=== PATIENT | female | born 1965 | race African-American/Black ===

== ENCOUNTER 2020-02-24 20:16 | Inpatient (IN) | payer MEDICAID ==
[~2020-02-24] VITALS: Ht 162.6 cm; Wt 119.8 kg
[2020-02-24] MEDS ORDERED: DiphenhydrAMINE HCL 50 MG/ML VIAL ONE (21:59)
[2020-02-24] MEDS ORDERED: LORazepam 2 MG/ML VIAL ONE (21:59)
[2020-02-24] MEDS ORDERED: HALOPERIDOL LACTATE 5 MG/ML VIAL ONE (21:59)
[2020-02-24] MEDS ORDERED: LORazepam 2 MG/ML VIAL IM ONE (22:00)
[2020-02-24] MEDS ORDERED: HALOPERIDOL LACTATE 5 MG/ML VIAL IM ONE (22:00)
[2020-02-24] MEDS ORDERED: DiphenhydrAMINE HCL 50 MG/ML VIAL IM ONE (22:00)
[2020-02-24] MEDS ORDERED: HALOPERIDOL 5 MG TABLET PO PRN (23:30)
[2020-02-25] MEDS ORDERED: MAG HYDROX/AL HYDROX/SIMETH ES 30 ML SUSPENSION UDCUP PO PRN (07:30)
[2020-02-25] MEDS ORDERED: DOCUSATE SODIUM 100 MG CAPSULE PO PRN (07:30)
[2020-02-25] MEDS ORDERED: NICOTINE 14 MG/24 HOUR PATCH TD PRN (07:30)
[2020-02-25] MEDS ORDERED: IBUPROFEN 400 MG TABLET PO PRN (07:30)
[2020-02-25] MEDS ORDERED: GuaiFENesin/D-METHORPHAN [SUGAR-FREE] 200-20MG/10 ML SYRUP UDCUP PO PRN (07:30)
[2020-02-25] MEDS ORDERED: PETROLATUM,WHITE 28 GM JELLY TP PRN (07:30)
[2020-02-25] MEDS ORDERED: ONDANSETRON HCL 4 MG TABLET PO PRN (07:30)
[2020-02-25] MEDS ORDERED: CloNIDine HCL 0.1 MG TABLET PO PRN (07:30)
[2020-02-25] MEDS ORDERED: ALBUTEROL SULFATE HFA 90 MCG/PUFF 8 GM INHALER IH PRN (07:30)
[2020-02-25] MEDS ORDERED: MAGNESIUM HYDROXIDE SUSPENSION 30 ML UDCUP PO PRN (07:30)
[2020-02-25] MEDS ORDERED: LOPERAMIDE HCL 2 MG CAPSULE PO PRN (07:30)
[2020-02-25 16:05] VITALS: BP 117/64
[2020-02-26 02:39] VITALS: BP 110/68
[2020-02-26] MEDS: LORazepam 2 MG TABLET PO PRN ×2 (08:00→20:26)
[2020-02-26 16:07] VITALS: BP 117/70
[2020-02-26] MEDS: RisperiDONE 1 MG TABLET PO SCH (21:00)
[2020-02-26] MEDS: ZOLPIDEM TARTRATE 10 MG TABLET PO PRN (22:40)
[2020-02-27 06:35] VITALS: BP 136/76
[2020-02-27 08:07] VITALS: BP 126/83
[2020-02-27] MEDS: LORazepam 2 MG TABLET PO PRN ×2 (08:15→13:00)
[2020-02-27] MEDS ORDERED: DiphenhydrAMINE HCL 50 MG/ML VIAL IM ONE ×2 (08:30→13:30)
[2020-02-27] MEDS ORDERED: LORazepam 2 MG/ML VIAL IM ONE (08:30)
[2020-02-27] MEDS ORDERED: ChlorproMAZINE HCL 50 MG/2 ML AMP IM ONE ×2 (08:30→13:30)
[2020-02-27] MEDS: RisperiDONE 1 MG TABLET PO SCH ×2 (09:00→21:00)
[2020-02-28] MEDS: LORazepam 2 MG TABLET PO PRN (08:19)
[2020-02-28] MEDS: RisperiDONE 1 MG TABLET PO SCH ×2 (08:22→20:06)
[2020-02-28] MEDS ORDERED: HALOPERIDOL LACTATE 5 MG/ML VIAL ONE (13:35)
[2020-02-28] MEDS ORDERED: DiphenhydrAMINE HCL 50 MG/ML VIAL ONE (13:35)
[2020-02-28] MEDS ORDERED: LORazepam 2 MG/ML VIAL ONE (13:35)
[2020-02-28] MEDS ORDERED: LORazepam 2 MG/ML VIAL IM ONE (13:45)
[2020-02-28] MEDS ORDERED: DiphenhydrAMINE HCL 50 MG/ML VIAL IM ONE (13:45)
[2020-02-28] MEDS ORDERED: HALOPERIDOL LACTATE 5 MG/ML VIAL IM ONE (13:45)
[2020-02-28 16:12] VITALS: BP 122/69
[2020-02-29 06:06] VITALS: BP 108/77
[2020-02-29 08:19] VITALS: BP 126/79
[2020-02-29] MEDS: LORazepam 2 MG TABLET PO PRN ×2 (08:35→14:52)
[2020-02-29] MEDS: RisperiDONE 1 MG TABLET PO SCH ×3 (08:39→21:00)
[2020-02-29 17:03] VITALS: BP 119/102
[2020-02-29] MEDS: ZOLPIDEM TARTRATE 10 MG TABLET PO PRN (21:30)
[2020-03-01] MEDS: LORazepam 2 MG TABLET PO PRN ×3 (00:24→17:21)
[2020-03-01 01:08] VITALS: BP 124/82
[2020-03-01] MEDS: ACETAMINOPHEN 325 MG TABLET PO PRN (08:18)
[2020-03-01] MEDS: RisperiDONE 1 MG TABLET PO SCH ×2 (08:20→20:17)
[2020-03-01 16:18] VITALS: BP 138/80
[2020-03-01] MEDS: ZOLPIDEM TARTRATE 10 MG TABLET PO PRN (20:15)
[2020-03-02 01:20] VITALS: BP 126/78
[2020-03-02] MEDS: LORazepam 2 MG TABLET PO PRN ×2 (08:06→16:23)
[2020-03-02] MEDS: RisperiDONE 1 MG TABLET PO SCH (08:06)
[2020-03-02] MEDS ORDERED: HALOPERIDOL LACTATE 5 MG/ML VIAL IM ONE (08:25)
[2020-03-02] MEDS ORDERED: LORazepam 2 MG/ML VIAL IM ONE (08:25)
[2020-03-02] MEDS ORDERED: DiphenhydrAMINE HCL 50 MG/ML VIAL IM ONE (08:25)
[2020-03-02 10:47] VITALS: BP 122/70
[2020-03-02] MEDS: TraMADol HCL 50 MG TABLET PO PRN (10:47)
[2020-03-02 16:10] VITALS: BP 142/88
[2020-03-02] MEDS: QUEtiapine FUMARATE 100 MG TABLET PO SCH (16:19)
[2020-03-02] MEDS: SIMETHICONE 80 MG CHEWABLE TABLET CHEW PRN (16:21)
[2020-03-03 01:13] VITALS: BP 126/78
[2020-03-03] MEDS: LORazepam 2 MG TABLET PO PRN ×2 (08:58→17:43)
[2020-03-03] MEDS: QUEtiapine FUMARATE 100 MG TABLET PO SCH ×2 (08:58→17:43)
[2020-03-03 09:35] VITALS: BP 124/80
[2020-03-03] MEDS: TraMADol HCL 50 MG TABLET PO PRN (09:35)
[2020-03-03 17:35] VITALS: BP 126/78
[2020-03-03] MEDS ORDERED: HALOPERIDOL LACTATE 5 MG/ML VIAL ONE (17:48)
[2020-03-03] MEDS ORDERED: LORazepam 2 MG/ML VIAL ONE (17:48)
[2020-03-03] MEDS ORDERED: DiphenhydrAMINE HCL 50 MG/ML VIAL ONE (17:48)
[2020-03-03] MEDS ORDERED: LORazepam 2 MG/ML VIAL IM ONE (18:00)
[2020-03-03] MEDS ORDERED: HALOPERIDOL LACTATE 5 MG/ML VIAL IM ONE (18:00)
[2020-03-03] MEDS ORDERED: DiphenhydrAMINE HCL 50 MG/ML VIAL IM ONE (18:00)
[2020-03-04 03:52] VITALS: BP 124/73
[2020-03-04] MEDS: LORazepam 2 MG TABLET PO PRN ×2 (08:12→14:47)
[2020-03-04] MEDS: QUEtiapine FUMARATE 100 MG TABLET PO SCH ×2 (08:12→16:59)
[2020-03-04] MEDS: TraMADol HCL 50 MG TABLET PO PRN (14:48)
[2020-03-05 01:50] VITALS: BP 114/72
[2020-03-05] MEDS: LORazepam 2 MG TABLET PO PRN ×3 (08:19→23:10)
[2020-03-05] MEDS: QUEtiapine FUMARATE 100 MG TABLET PO SCH ×2 (08:19→16:03)
[2020-03-05] MEDS: TraMADol HCL 50 MG TABLET PO PRN (10:32)
[2020-03-05] MEDS: SIMETHICONE 80 MG CHEWABLE TABLET CHEW PRN (15:23)
[2020-03-05 16:07] VITALS: BP 114/68
[2020-03-05] MEDS: ZOLPIDEM TARTRATE 10 MG TABLET PO PRN (23:10)
[2020-03-06 00:55] VITALS: BP 119/87
[2020-03-06 08:15] VITALS: BP 137/98
[2020-03-06] MEDS: QUEtiapine FUMARATE 100 MG TABLET PO SCH ×2 (09:00→16:39)
[2020-03-06] MEDS: TraMADol HCL 50 MG TABLET PO PRN ×2 (09:08→17:12)
[2020-03-06] MEDS ORDERED: ZOLPIDEM TARTRATE 10 MG TABLET PO PRN (09:15)
[2020-03-06 10:08] VITALS: BP 128/80
[2020-03-06] MEDS: LORazepam 2 MG TABLET PO PRN ×2 (11:32→16:32)
[2020-03-06 16:18] VITALS: BP 125/76
[2020-03-06 17:13] VITALS: BP 126/75
[2020-03-06] MEDS: ACETAMINOPHEN 325 MG TABLET PO PRN (20:29)
[2020-03-07 00:41] VITALS: BP 101/71
[2020-03-07] MEDS: LORazepam 2 MG TABLET PO PRN ×3 (07:36→17:13)
[2020-03-07] MEDS: QUEtiapine FUMARATE 100 MG TABLET PO SCH ×2 (08:06→16:00)
[2020-03-07 08:19] VITALS: BP 129/81
[2020-03-07] MEDS: TraMADol HCL 50 MG TABLET PO PRN (16:00)
[2020-03-07 16:23] VITALS: BP 124/79
[2020-03-08 01:06] VITALS: BP 117/74
[2020-03-08] MEDS: TraMADol HCL 50 MG TABLET PO PRN (05:11)
[2020-03-08] MEDS: LORazepam 2 MG TABLET PO PRN ×2 (06:13→16:35)
[2020-03-08 08:06] VITALS: BP 136/60
[2020-03-08] MEDS: QUEtiapine FUMARATE 100 MG TABLET PO SCH ×2 (08:45→16:35)
[2020-03-08] MEDS: SIMETHICONE 80 MG CHEWABLE TABLET CHEW PRN (08:48)
[2020-03-08 16:05] VITALS: BP 134/72
[2020-03-09 05:03] VITALS: BP 132/70
[2020-03-09 08:35] VITALS: BP 102/68
[2020-03-09] MEDS: TraMADol HCL 50 MG TABLET PO PRN (09:49)
[2020-03-09] MEDS: QUEtiapine FUMARATE 100 MG TABLET PO SCH (09:49)
[2020-03-09] MEDS: LORazepam 2 MG TABLET PO PRN (09:49)
== END 2020-03-09 10:45 | disposition home or self-care (01) | DRG 751 ==
LOC: EMS 20:19 → B3A 02-25 11:47
PROVIDERS: ADMIT Psychiatry & Neurology Child & Adolescent Psychiatry; ATTEND Psychiatry & Neurology Child & Adolescent Psychiatry
DX: F29 Unspecified psychosis not due to a substance or known physiological condition (principal); G93.40 Encephalopathy, unspecified; Z87.891 Personal history of nicotine dependence; Z03.818 Encounter for observation for suspected exposure to other biological agents ruled out
CPT/HCPCS: 87426; 99291; J1200; J1630; J2060; J3230

== ENCOUNTER 2025-04-16 15:05 | Inpatient (IN) | payer MEDICAID, OTHER ==
[~2025-04-16] VITALS: Ht 167.6 cm; Wt 132.0 kg
[2025-04-16] MEDS: IPRATROPIUM BROMIDE 0.5 MG/2.5 ML NEB SOLUTION NEB ONE (15:44)
[2025-04-16] MEDS: ALBUTEROL SULFATE 2.5 MG/0.5 ML NEB SOLUTION NEB ONE (15:45)
[2025-04-16 15:47] VITALS: PULSE 86; RESP 24; O2SAT 88
[2025-04-16 16:02] VITALS: PULSE 94; RESP 22; O2SAT 93
[2025-04-16 20:26] LABS: APPEARANCE,URINE HAZY (CLEAR); GLUCOSE, URINE (UA) NEGATIVE (NEGATIVE); LEUKOCYTE ESTERASE ,URINE TRACE (NEGATIVE); NITRATE,URINE POSITIVE (NEGATIVE); OCCULT BLOOD,URINE NEGATIVE (NEGATIVE); SPECIFIC GRAVITIY, URINE 1.016 (1.003-1.030)
[2025-04-16 20:45] VITALS: BP 139/83; PULSE 89; RESP 18; TEMP 97.9; O2SAT 90
[2025-04-16 20:45] LABS: SQUAMOUS EPITHELIAL CELL,UR Few /LPF (None Seen)
[2025-04-16] MEDS ORDERED: HYDROCODONE/ACETAMINOPHEN 5-325 MG TABLET PO PRN (21:15)
[2025-04-16] MEDS ORDERED: BISACODYL 10 MG RECTAL RECTAL SUPPOSITORY PR PRN (21:15)
[2025-04-16] MEDS ORDERED: MAGNESIUM HYDROXIDE SUSPENSION 30 ML UDCUP PO PRN (21:15)
[2025-04-16] MEDS ORDERED: MORPHINE SULFATE 4 MG/ML SYRINGE IVP PRN (21:15)
[2025-04-16] MEDS ORDERED: ONDANSETRON HCL 4 MG/2 ML VIAL IVP PRN (21:15)
[2025-04-16] MEDS: CefTRIAXone 1 GM/DEXTROSE 50 ML IV SCH (22:00)
[2025-04-16] MEDS: AZITHROMYCIN 500 MG/NS 250 ML IV SCH (22:00)
[2025-04-17] MEDS: HEPARIN SODIUM,PORCINE 5,000 UNITS/ML VIAL SQ SCH
[2025-04-17] MEDS ORDERED: SODIUM CHLORIDE 0.9% 500 ML IV ONE (00:01)
[2025-04-17] MEDS: ALBUTEROL SULFATE 2.5 MG/0.5 ML NEB SOLUTION NEB SCH (02:00)
[2025-04-17] MEDS: IPRATROPIUM BROMIDE 0.5 MG/2.5 ML NEB SOLUTION NEB SCH (02:00)
[2025-04-17 07:54] LABS: PLATELET COUNT (AUTO) 449 K/uL (150-450); RED BLOOD CELL COUNT(AUTO) 4.65 MIL/uL (4.00-5.20); RED CELL DISTRIBUTION WIDTH 18.2 % (11.5-14.5); WHITE BLOOD COUNT (AUTO) 6.9 K/uL (4.5-11.0)
[2025-04-17 07:59] LABS: CALCIUM, TOTAL 8.2 mg/dL (8.8-10.5); CREATININE 0.64 mg/dL (0.60-1.30); GLOMERULAR FILTR. RATE CALC > 60 mL/min (>60); GLUCOSE,RANDOM 163 mg/dL (70-110); SODIUM SERUM 135 mmol/L (136-145); UREA NITROGEN, BLOOD 9 mg/dL (7-18)
[2025-04-17 08:08] LABS: TROPONIN I-HIGH SENSITIVITY 13 ng/L (<51)
[2025-04-17 08:21] VITALS: BP 142/92; PULSE 91; RESP 18; TEMP 98.1; O2SAT 91
[2025-04-17] MEDS: BENZONATATE 100 MG CAPSULE PO SCH (10:22)
[2025-04-17] MEDS: GuaiFENesin SR 600 MG ER TABLET PO SCH (10:22)
[2025-04-17] MEDS: DOCUSATE SODIUM 100 MG CAPSULE PO SCH (10:22)
[2025-04-17] MEDS: PANTOPRAZOLE SODIUM 40 MG DR TABLET PO SCH (10:22)
[2025-04-17] MEDS: ACETAMINOPHEN 325 MG TABLET PO PRN (10:28)
[2025-04-17] MEDS: CEPHALEXIN MONOHYDRATE 500 MG CAPSULE PO SCH (15:19)
[2025-04-17] MEDS: LORazepam 2 MG/ML VIAL IM ONE (17:32)
[2025-04-18] VITALS (7 sets, daily range): BP systolic 122; BP diastolic 57; PULSE 90–101; RESP 18–22; TEMP 98.1; O2SAT 86–95
[2025-04-18] MEDS: ALBUTEROL SULFATE 2.5 MG/0.5 ML NEB SOLUTION NEB PRN (04:22)
[2025-04-18] MEDS: IPRATROPIUM BROMIDE 0.5 MG/2.5 ML NEB SOLUTION NEB PRN (04:23)
[2025-04-18] MEDS ORDERED: AZITHROMYCIN 500 MG TABLET PO SCH (09:00)
[2025-04-19 09:12] VITALS: PULSE 86; RESP 18; O2SAT 94
[2025-04-19 09:47] VITALS: BP 115/51; RESP 17; TEMP 98.1; O2SAT 90
[2025-04-19 13:45] VITALS: PULSE 95; RESP 20; O2SAT 96
[2025-04-19 20:40] VITALS: PULSE 84; RESP 20; O2SAT 90
[2025-04-19 20:52] VITALS: BP 141/64; PULSE 88; RESP 18; TEMP 98.1; O2SAT 100
[2025-04-19 20:55] VITALS: PULSE 88; RESP 20; O2SAT 96
[2025-04-19] MEDS ORDERED: BUPR1TAB46 SL (23:30)
[2025-04-20] VITALS (10 sets, daily range): BP systolic 115–139; BP diastolic 60–73; PULSE 65–96; RESP 17–20; TEMP 97.3–98; O2SAT 83–99
[2025-04-20] MEDS: LORazepam 2 MG/ML VIAL IM ONE (02:46)
[2025-04-20 06:19] LABS: PLATELET COUNT (AUTO) 397 K/uL (150-450); RED BLOOD CELL COUNT(AUTO) 4.24 MIL/uL (4.00-5.20); RED CELL DISTRIBUTION WIDTH 18.2 % (11.5-14.5); WHITE BLOOD COUNT (AUTO) 12.8 K/uL (4.5-11.0)
[2025-04-20 06:32] LABS: CALCIUM, TOTAL 8.2 mg/dL (8.8-10.5); CREATININE 0.64 mg/dL (0.60-1.30); GLOMERULAR FILTR. RATE CALC > 60 mL/min (>60); GLUCOSE,RANDOM 84 mg/dL (70-110); SODIUM SERUM 143 mmol/L (136-145); UREA NITROGEN, BLOOD 12 mg/dL (7-18)
[2025-04-20] MEDS: ZOLPIDEM TARTRATE 5 MG TABLET PO PRN (20:32)
[2025-04-21] MEDS: ZIPRASIDONE MESYLATE 20 MG/VIAL IM ONE (18:22)
[2025-04-21 20:00] VITALS: BP 135/81; PULSE 96; RESP 20; TEMP 97.5; O2SAT 93
[2025-04-22] VITALS (7 sets, daily range): BP systolic 115–132; BP diastolic 53–87; PULSE 83–89; RESP 18–20; TEMP 97.5–98.4; O2SAT 92–99
[2025-04-23 04:00] VITALS: BP 113/41; PULSE 69; RESP 18; TEMP 98.1; O2SAT 95
[2025-04-23 07:30] VITALS: BP 111/53; PULSE 82; PULSE 84; PULSE 86; RESP 16; RESP 18; RESP 20; TEMP 98.4; O2SAT 93; O2SAT 95; O2SAT 98
[2025-04-23 14:00] VITALS: PULSE 92; RESP 22; O2SAT 99
[2025-04-23] MEDS ORDERED: ALBU2.5V39 NEB (14:40)
[2025-04-23] MEDS ORDERED: BENZ-227 PO (14:41)
[2025-04-23] MEDS ORDERED: IPRA0.2S49 NEB (14:42)
[2025-04-23] MEDS ORDERED: PRED-554 PO (14:46)
[2025-04-23] MEDS ORDERED: QUET200T PO (14:46)
[2025-04-23] MEDS ORDERED: QUET300T2 PO (14:47)
== END 2025-04-23 17:47 | DRG 189 ==
LOC: EMS 15:06 → EDH 16:41 → 6S 20:18
PROVIDERS: ADMIT Internal Medicine; ATTEND Internal Medicine
DX: J96.01 Acute respiratory failure with hypoxia (principal); J15.69 Pneumonia due to other Gram-negative bacteria; F31.2 Bipolar disorder, current episode manic severe with psychotic features; J90 Pleural effusion, not elsewhere classified; N39.0 Urinary tract infection, site not specified; B96.20 Unspecified Escherichia coli [E. coli] as the cause of diseases classified elsewhere; J45.901 Unspecified asthma with (acute) exacerbation; F17.200 Nicotine dependence, unspecified, uncomplicated; D72.829 Elevated white blood cell count, unspecified; Z53.20 Procedure and treatment not carried out because of patient's decision for unspecified reasons; Z79.899 Other long term (current) drug therapy; Z91.199 Patient's noncompliance with other medical treatment and regimen due to unspecified reason
CPT/HCPCS: 71045; 80048; 81001; 83880; 84484; 85025; 87077; 87086; 87185; 87186; 93005; 94640; 94760; 99285; J0456; J0696; J1200; J1644; J2060; J2919; J3230; J3486; J7040; 36415-L1; 36415-TC; J7613